=== PATIENT | female | born 1985 | race Caucasian/White ===

== ENCOUNTER 2016-07-29 18:55 | Emergency (ER) | payer SELFPAY ==
[~2016-07-29] VITALS: Ht 162.6 cm; Wt 81.8 kg
[2016-07-29 19:34] LABS: APPEARANCE,URINE CLEAR (CLEAR); GLUCOSE, URINE (UA) NEGATIVE (NEGATIVE); KETONES,URINE >=80 mg/dL (NEGATIVE); LEUKOCYTE ESTERASE ,URINE SMALL (NEGATIVE); OCCULT BLOOD,URINE NEGATIVE (NEGATIVE); PROTEIN,URINE TRACE (NEGATIVE)
[2016-07-29 19:48] LABS: RBC,URINE None Seen /HPF (0-2)
[2016-07-29 19:49] LABS: SQUAMOUS EPITHELIAL CELL,UR Rare /LPF (None Seen)
[2016-07-29] MEDS ORDERED: ACETAMINOPHEN 500 MG TABLET PO ONE (20:00)
[2016-07-29 21:27] VITALS: BP 121/67
[2016-07-29] MEDS ORDERED: DEXAMETHASONE SOD PHOS 4 MG/ML 5 ML VIAL IM ONE (21:45)
[2016-07-29] MEDS ORDERED: HYDROCODONE/ACETAMINOPHEN 5-325 MG TABLET PO ONE (21:45)
[2016-07-29] MEDS ORDERED: PENICILLIN G BENZATHINE LA 1,200,000 UNITS/2 ML SYRINGE IM ONE (21:45)
== END 2016-07-29 22:02 | disposition home or self-care (01) ==
LOC: EMS 18:59
DX: J03.80 Acute tonsillitis due to other specified organisms (principal); R51 Headache
CPT/HCPCS: 81001; 84703; 87086; 96372; 99284; J0561; J1100